=== PATIENT | male | born 1965 | race Caucasian/White ===

== ENCOUNTER 2025-04-01 21:55 | Inpatient (IN) | payer SELFPAY ==
[~2025-04-01] VITALS: Ht 162.6 cm; Wt 68.0 kg
[2025-04-01] MEDS: ONDANSETRON 4MG ODT PO ONE (23:18)
[2025-04-01] MEDS: KETOROLAC 15MG/ML VIAL IM ONE (23:23)
[2025-04-01 23:33] LABS: BASOPHILS % 0.1 % (0.0-2.0); EOSINOPHILS % 0.1 % (0.0-5.0); LYMPHOCYTES % 9.2 % (20.0-50.0); MEAN CORPUSCULAR HEMOGLOBIN 29.4 pg (28.0-32.0); MEAN CORPUSCULAR HGB CONC 33.3 g/dL (31.0-37.0); MEAN CORPUSCULAR VOLUME 88.4 fL (80.0-94.0); NEUTROPHILS % 84.6 % (40.0-76.0); PLATELET 219 x1000/uL (130-400); RED BLOOD CELL COUNT 5.09 mill/uL (4.7-6.1); RED CELL DISTRIBUTION WIDTH 13.9 % (11.6-14.6); WHITE BLOOD COUNT 13.7 x1000/uL (4.5-11.0)
[2025-04-01 23:52] LABS: CHLORIDE 102 mEq/L (98-107); POTASSIUM 3.2 mEq/L (3.5-5.1); SODIUM 139 mEq/L (136-145)
[2025-04-01 23:54] LABS: CARBON DIOXIDE 30 mEq/L (21-32)
[2025-04-01 23:55] LABS: CALCIUM 9.3 mg/dL (8.7-10.4)
[2025-04-01 23:59] LABS: CREATININE 0.9 mg/dL (0.6-1.3); GLUCOSE 140 mg/dL (70-105)
[2025-04-02] LABS: UREA NITROGEN BLOOD 14 mg/dL (9-23)
[2025-04-02 00:01] LABS: ALANINE AMINOTRANSFERASE 29 IU/L (10-49); ALBUMIN 4.8 g/dL (3.2-4.8); ASPARTATE AMINOTRANSFERASE 23 IU/L (<34)
[2025-04-02 00:02] LABS: BILIRUBIN DIRECT 0.2 mg/dL (<=3.0); BILIRUBIN TOTAL 0.6 mg/dL (0.1-1.0); PROTEIN TOTAL 7.6 g/dL (6.0-8.3)
[2025-04-02 00:12] LABS: TROPONIN I HIGH SENSITIVITY < 4 ng/L (3.0-53)
[2025-04-02 01:11] LABS: TROPONIN I HIGH SENSITIVITY < 4 ng/L (3.0-53)
[2025-04-02 02:09] LABS: CLARITY URINE CLEAR (CLEAR); COLOR URINE YELLOW (YELLOW); GLUCOSE URINE NEGATIVE (NEGATIVE); KETONES URINE 1+ (NEGATIVE); LEUKOCYTE ESTERASE URINE NEGATIVE (NEGATIVE); NITRITE URINE NEGATIVE (NEGATIVE); OCCULT BLOOD URINE 2+ (NEGATIVE); PROTEIN URINE TRACE (NEGATIVE); SPECIFIC GRAVITY URINE 1.022 (1.005-1.030)
[2025-04-02 02:34] LABS: RBC URINE 25-50 /hpf (0-2); SQUAMOUS EPITHELIAL CELL URINE NONE SEEN /lpf (RARE/1+)
[2025-04-02 02:35] LABS: BACTERIA URINE TRACE
[2025-04-02] MEDS ORDERED: CEFTRIAXONE 1,000 MG in DEXT 5% WATER 100 ML IV SCH (03:30)
[2025-04-02] MEDS: CEFTRIAXONE 1GM/50ML 50ML IV SCH (04:00)
[2025-04-02] MEDS: METRONIDAZOLE 500 MG PREMIX 100 ML IV ONE (04:03)
[2025-04-02 04:40] VITALS: BP 150/90; PULSE 87; RESP 18; TEMP 36.8
[2025-04-02 04:55] VITALS: BP 150/90; PULSE 87; RESP 18; TEMP 36.8; O2SAT 99
[2025-04-02] MEDS ORDERED: ONDANSETRON HCL 4MG/2ML INJ IV PRN (05:30)
[2025-04-02] MEDS ORDERED: ACETAMINOPHEN 325MG TABLET PO PRN ×2 (05:30)
[2025-04-02] MEDS ORDERED: IPRATROPIUM/ALBUTEROL 0.5-3(2.5)MG/3ML NEB HHN PRN (05:30)
[2025-04-02] MEDS: MORPHINE SULFATE 2 MG/ML INJ (NOT FOR IM USE) IV NR (05:41)
[2025-04-02] MEDS: DEXT 5%/0.45% NACL 1000ML 1,000 ML IV SCH (05:44)
[2025-04-02] MEDS: KCL 20MEQ/100ML PREMIX 100 ML IV SCH (07:59)
[2025-04-02 08:00] VITALS: BP 119/63; PULSE 82; RESP 18; TEMP 37.2; O2SAT 98
[2025-04-02] MEDS: PANTOPRAZOLE SODIUM 40 MG/VIAL IV SCH (09:00)
[2025-04-02 10:13] LABS: HEMATOCRIT. 44.2 % (42.0-52.0); HEMOGLOBIN. 14.9 g/dL (14.0-18.0); MEAN CORPUSCULAR HEMOGLOBIN 29.6 pg (28.0-32.0); MEAN CORPUSCULAR HGB CONC 33.7 g/dL (31.0-37.0); MEAN CORPUSCULAR VOLUME 87.7 fL (80.0-94.0); MEAN PLATELET VOLUME 9.5 fl (7.4-10.4); PLATELET 173 x1000/uL (130-400); RED BLOOD CELL COUNT 5.04 mill/uL (4.7-6.1); WHITE BLOOD COUNT 14.7 x1000/uL (4.5-11.0)
[2025-04-02 10:16] LABS: DIFFERENTIAL COMMENT 1
[2025-04-02 10:18] LABS: CHLORIDE 102 mEq/L (98-107); POTASSIUM 3.3 mEq/L (3.5-5.1); SODIUM 137 mEq/L (136-145)
[2025-04-02 10:19] LABS: CALCIUM 8.9 mg/dL (8.7-10.4); CARBON DIOXIDE 27 mEq/L (21-32)
[2025-04-02 10:24] LABS: CREATININE 0.8 mg/dL (0.6-1.3); GLUCOSE 131 mg/dL (70-105); TRIGLYCERIDE 34 mg/dL (0-150)
[2025-04-02 10:25] LABS: LDL CHOLESTEROL 108 mg/dL (5-100); UREA NITROGEN BLOOD 15 mg/dL (9-23)
[2025-04-02 10:26] LABS: CHOLESTEROL 158 mg/dL (<200); HDL CHOLESTEROL 45 mg/dL (>55)
[2025-04-02 10:27] LABS: PHOSPHORUS 3.1 mg/dL (2.5-4.9)
[2025-04-02 10:29] LABS: T4 FREE 1.13 ng/dL (0.89-1.76)
[2025-04-02 12:00] VITALS: BP 121/77; PULSE 74; RESP 18; TEMP 37.3; O2SAT 100
[2025-04-02 12:26] LABS: PLATELET ESTIMATE NORMAL
[2025-04-02] MEDS: METRONIDAZOLE 500 MG PREMIX 100 ML IV SCH (13:34)
[2025-04-02 16:00] VITALS: BP 136/77; PULSE 85; RESP 18; TEMP 36.1; O2SAT 100
[2025-04-02 20:00] VITALS: BP 132/82; PULSE 83; RESP 19; TEMP 37.2; O2SAT 97
[2025-04-03] VITALS: BP 130/82; PULSE 82; RESP 18; TEMP 36.7; O2SAT 98
[2025-04-03 04:00] VITALS: BP 125/83; PULSE 79; RESP 18; TEMP 37.2; O2SAT 98
[2025-04-03] MEDS: CEFTRIAXONE 1GM/50ML 50 ML IV SCH (06:50)
[2025-04-03 06:52] LABS: BASOPHILS % 0.1 % (0.0-2.0); EOSINOPHILS % 0.2 % (0.0-5.0); HEMATOCRIT. 43.3 % (42.0-52.0); HEMOGLOBIN. 14.7 g/dL (14.0-18.0); LYMPHOCYTES % 10.6 % (20.0-50.0); MEAN CORPUSCULAR HEMOGLOBIN 29.8 pg (28.0-32.0); MEAN CORPUSCULAR HGB CONC 33.9 g/dL (31.0-37.0); MEAN CORPUSCULAR VOLUME 87.7 fL (80.0-94.0); MEAN PLATELET VOLUME 9.5 fl (7.4-10.4); MONOCYTES % 11.4 % (2.0-8.0); NEUTROPHILS % 77.7 % (40.0-76.0); PLATELET 166 x1000/uL (130-400); RED BLOOD CELL COUNT 4.93 mill/uL (4.7-6.1); RED CELL DISTRIBUTION WIDTH 14.2 % (11.6-14.6); WHITE BLOOD COUNT 14.5 x1000/uL (4.5-11.0)
[2025-04-03 07:03] LABS: CHLORIDE 104 mEq/L (98-107); POTASSIUM 3.4 mEq/L (3.5-5.1); SODIUM 140 mEq/L (136-145)
[2025-04-03 07:04] LABS: CALCIUM 8.9 mg/dL (8.7-10.4); CARBON DIOXIDE 27 mEq/L (21-32)
[2025-04-03 07:09] LABS: CREATININE 0.9 mg/dL (0.6-1.3); GLUCOSE 119 mg/dL (70-105); UREA NITROGEN BLOOD 14 mg/dL (9-23)
[2025-04-03 07:11] LABS: ALANINE AMINOTRANSFERASE 21 IU/L (10-49); ASPARTATE AMINOTRANSFERASE 20 IU/L (<34)
[2025-04-03 07:12] LABS: BILIRUBIN TOTAL 1.2 mg/dL (0.1-1.0); PROTEIN TOTAL 6.7 g/dL (6.0-8.3)
[2025-04-03 08:00] VITALS: BP 130/80; PULSE 86; RESP 17; TEMP 37.3; O2SAT 98
[2025-04-03 09:25] LABS: *AMPHETAMINES SCREEN URINE NEGATIVE (NEGATIVE); *BARBITURATES SCREEN URINE NEGATIVE (NEGATIVE); *BENZODIAZEPINES SCREEN URINE NEGATIVE (NEGATIVE); *COCAINE SCREEN URINE NEGATIVE (NEGATIVE); METHADONE URINE SCREEN NEGATIVE (NEGATIVE); OPIATES URINE SCREEN NEGATIVE (NEGATIVE); PHENCYCLIDINE URINE SCREEN NEGATIVE (NEGATIVE)
[2025-04-03 09:26] LABS: CANNABINOID URINE SCREEN NEGATIVE (NEGATIVE); ECSTASY MDMA SCREEN URINE NEGATIVE (NEGATIVE)
[2025-04-03 14:51] VITALS: BP 117/80; PULSE 78; TEMP 97.9; O2SAT 97
== END 2025-04-03 15:33 | disposition home or self-care (01) | DRG 720 ==
LOC: ER 21:55 → ENRESERV 04-02 04:15 → 8EST 04-02 04:42
PROVIDERS: ADMIT Internal Medicine; ATTEND Internal Medicine
DX: A41.9 Sepsis, unspecified organism (principal); K80.00 Calculus of gallbladder with acute cholecystitis without obstruction; E87.6 Hypokalemia
CPT/HCPCS: 36415; 74176; 76705; 80048; 80053; 80061; 80076; 80305; 81003; 83605; 83735; 84100; 84145; 84439; 84443; 84484; 85025; 93005; 99285; J0696; J1885; J2270; J2470; J3480; J3490; Q0162